=== PATIENT | male | born 1975 | race Caucasian/White ===

== ENCOUNTER → 2020-08-20 08:27 | Outpatient (CLI) | payer BC, SELFPAY ==
--- NOTE | ~2020-08-20 | XR_ITS ---
XR thoracic spine 3V DATE: 08/20/2020 09:03 INDICATION: Back pain TECHNIQUE: Standing AP, lateral and swimmer views COMPARISON: None FINDINGS: There is minimal dextroscoliosis of the thoracic spine. No fracture or dislocation or bone destruction. The thoracic pedicles are intact. No paraspinal soft tissue thickening. IMPRESSION: Minimal dextroscoliosis Reviewed, dictated and finalized at location A. ON ANALYST IMPRESSION: Minimal dextroscoliosis
--- NOTE | ~2020-08-20 | XR_ITS ---
XR lumbar spine 2-3V DATE: 08/20/2020 09:03 INDICATION: Back pain TECHNIQUE: AP, lateral, coned lateral lumbosacral views COMPARISON: None FINDINGS: The lumbar vertebrae are normally aligned. No fracture or bone destruction or spondylolisth esis. The lumbar pedicles are intact. Lumbar and lumbosacral interspaces are well preserved. The sacr oiliac joints appear normal. IMPRESSION: Negative Reviewed, dictated and finalized at location A. R PULLER IMPRESSION: Negative
== END ==
PROVIDERS: PCP Internal Medicine; Visit Provider Internal Medicine
DX: M54.5 Low back pain (principal); M54.6 Pain in thoracic spine; M41.9 Scoliosis, unspecified
CPT/HCPCS: 72072; 72100

== ENCOUNTER 2020-09-16 16:31 | Emergency (ER) | payer BC, SELFPAY ==
--- NOTE | ~2020-09-16 | CT_ITS ---
EXAMINATION: CT brain wo con EXAM DATE: 09/16/2020 17:47 INDICATION: Altered mental status. TECHNIQUE: Spiral CT of the head was performed without contrast. Axial, coronal and sagittal images were reviewed. The dose-length product (DLP) for this examination was 605.33 mGy-cm. The exposure w as tailored according to patient size, and iterative reconstruction (ASIR) was used as additional dos e reduction technique. There is no prior study for comparison. FINDINGS: There is no acute intraparenchymal hemorrhage. No evidence of intraparenchymal brain mass lesion. No evidence of acute infarction. There is no mass effect or midline shift. The ventricles are normal in size. There are no extra-axial collections. There are no acute calvarial fractures. T he orbits are unremarkable. Soft tissue is unremarkable. The visualized sinuses and mastoid air johann ls are well aerated. IMPRESSION: 1. Normal head CT examination. Reviewed, dictated and finalized at location A. RVISOR SOAKERS
[2020-09-16 16:40] VITALS: BP 124/81; PULSE 76; RESP 18; TEMP 36.7; O2SAT 97
--- NOTE | 2020-09-16 16:48 | ECG_ITS ---
Measurements Intervals [place] Rate: 76 P: 17 [place]: 149 QRS: 11 QRSD: 80 T: 19 QT: 333 QTc: 374 Interpretive Statements SINUS RHYTHM BASELINE ARTIFACT- I, II, III, AVR, AVL NORMAL ECG Electronically Signed On 09-16-2020 18:07:59 CANDY STARCH MOLD PRINTER by Ceasar Sandoval D.O.
[2020-09-16 17:00] VITALS: PULSE 76
--- NOTE | 2020-09-16 17:15 | ED.GENADULT ---
HPI - General Adult General Chief complaint: Unspecified Stated complaint: confusion Time Seen by Provider: 09/16/20 16:52 Source: patient and family Mode of arrival: ambulatory Limitations: no limitations History of Present Illness HPI narrative: A 45-year-old male presents to the emergency department with multiple complaints. First patient states that he had an episode earlier today where he got very sweaty, lightheaded, he noted blurriness to his vision. Patient also notes shakiness. Initially he thought his blood sugar may be low as he has been told he is a prediabetic in the past. He checked his blood sugar and found it to be 98. Patient drinks some orange juice and had a candy bar and started to feel somewhat better. He later went home and rested. When the patient was still continuing to feel off he decided to come in. He does have a history of Klinefelter syndrome with hypothyroidism, rheumatoid arthritis and prediabetes. Patient denies any changes in his medications in the last several months. He states the only change he can think of is he was taken off of prednisone and put on leflunomide for his RA several months ago. Patient also recently had a 40 pound weight loss. At this time the patient states he feels fatigued but otherwise nearly back to normal. Related Data Home Medications Medication Instructions Recorded Confirmed Nexium 09/16/20 celecoxib mg 09/16/20 leflunomide mg 09/16/20 levothyroxine 09/16/20 testosterone 09/16/20 Allergies Allergy/AdvReac Type Severity Reaction Status Date / Time Opioids - Morphine Analogues Allergy Severe FORMER Verified 12/05/17 20:25 ADDICT NKA Allergy Unknown Uncoded 09/16/20 17:06 Review of Systems Review of Systems: Narrative: CONSTITUTIONAL: Denies fever, chills, or sweats. Endorses fatigue EYES: Denies visual changes, redness, or discharge. ENT: Denies rhinorrhea, congestion, sore throat, or otalgia. CARDIOVASCULAR: Denies chest pain, palpitations, or edema. RESPIRATORY: Denies cough or dyspnea. GASTROINTESTINAL: Denies abdominal pain, nausea, vomiting, or diarrhea. GENITOURINARY: Denies dysuria or hematuria. SKIN: Denies rash or itching. MUSCULOSKELETAL: Denies back pain, joint pain, or myalgia. NEUROLOGIC: Denies headache, numbness, dizziness, or weakness. PSYCHIATRIC: Denies anxiety or depression. [facility] Past Medical History Medical History Hypothyroidism Klinefelters syndrome Rheumatoid arthritis Social History Social History Smoking status: Current every day smoker Alcohol intake: current Gender identity (if verbalized by the patient): Male Exam Narrative: Exam Narrative: GENERAL: Well-appearing, well-nourished, and in no acute distress. HEAD: Normocephalic, atraumatic. EYES: PERRLA and EOMI. ENT: Nares clear, no rhinorrhea or epistaxis. Mucous membranes moist. Oropharynx without tonsillar hypertrophy exudate or other lesions. Bilateral TMs pearly pro nonbulging NECK: Supple. No adenopathy or masses. No carotid bruits or JVD CHEST: Clear to auscultation. No respiratory distress. No wheezes rales or rhonchi HEART: Regular rate and rhythm. No murmur heard. Normal peripheral pulses. ABDOMEN: Soft, nontender, nondistended, normal active bowel sounds. EXTREMITIES: Normal range of motion. No edema. SKIN: Warm, dry, no rash. NEURO: No focal deficits. Alert and oriented x3. NIHSS = 0. PSYCH: Normal mood and affect. Course Reevaluation(s) Reevaluation #1: Patient reevaluated and provided care update. He is resting comfortably in his room. Updated to the current values of labs. We discussed all at this point. Informed him of his CT findings as well. Patient notes that he is starting to feel better, almost back to baseline. Date: 09/16/20 Time: 18:14 Reevaluation #2: Patient updated to final results. Recommended he cease ma
[2020-09-16] MEDS: LACTATED RINGERS 1,000 ML 999 ML IV CONT (17:42)
--- NOTE | 2020-09-16 17:43 | PC.NURSE ---
IV obtained with 2nd attempt, IVF bolus started. Pt to radiology for head CT.
[2020-09-16 17:47] LABS: Basophils Absolute Auto 0.1 K/mm3 (0.0-0.1); Basophils Percent Auto 0.9 % (0.2-1.2); Eosinophils Absolute Auto 0.5 K/mm3 (0-0.3); Eosinophils Percent Auto 5.1 % (0-4.4); Hematocrit 41.3 % (42.0-52.0); Hemoglobin 14.1 g/dL (14.0-18.0); Immature Granulocyte Absolute 0.03 K/mm3 (0.00-0.031); Immature Granulocyte Percent A 0.3 % (0-0.5); Lymphocytes Absolute Auto 2.16 K/mm3 (0.9-3.2); Lymphocytes Percent Auto 23.6 % (18.3-44.2); Mean Corpuscular HGB Conc 34.1 g/dl (32-36); Mean Corpuscular Hemoglobin 30.7 pg (26-34); Mean Corpuscular Volume 89.8 fl (80-100); Mean Platelet Volume 9.3 fl (7.4-10.4); Monocytes Absolute Auto 0.7 K/mm3 (0.1-0.6); Monocytes Percent Auto 7.5 % (2.6-8.5); Neutrophils Absolute Auto 5.7 K/mm3 (1.3-6.7); Neutrophils Percent Auto 62.6 % (45.5-73.1); Platelet Count Result 180 k/mm3 (150-375); White Blood Count 9.2 K/mm3 (4.5-10.0)
[2020-09-16 17:54] LABS: Prothrombin Time 13.6 Seconds (11.1-14.7)
[2020-09-16 17:56] LABS: Ammonia 23 umol/L (9-30)
[2020-09-16 17:56] LABS: Alanine Aminotransferase 25 U/L (4-50); Albumin Level 4.3 g/dL (3.5-5.1); Alkaline Phosphatase 85 U/L (38-126); Anion Gap 8 mmol/L (8-16); Aspartate Amino Transferase 25 U/L (17-59); Bilirubin,Total 0.5 mg/dL (0.2-1.3); Blood Urea Nitrogen 20 mg/dL (9-20); Calcium 9.6 mg/dL (8.4-10.2); Carbon Dioxide 27 mmol/L (22-30); Chloride 103 mmol/L (98-107); Creatine Kinase 97 U/L (55-170); Estimated CRCL calculation 135 ml/min; Estimated Glomerular Filt Rate > 60; Glucose 121 mg/dL (75-110); Potassium 3.8 mmol/L (3.4-5.0); Sodium 138 mmol/L (137-145)
[2020-09-16 17:57] LABS: Lactic Acid Reflex 1.1 mmol/L (0.7-2.1)
[2020-09-16 18:08] LABS: Troponin I < 0.012 ng/mL (0.000-0.034)
[2020-09-16 18:10] LABS: Glucose Point of Care 88 (65-105)
[2020-09-16 18:27] LABS: Thyroid Stimulating Hormone 0.197 uIU/mL (0.465-4.680)
[2020-09-16 18:38] LABS: Add Urine Microscopic? NO; Appearance Urine Clear (Clear); Bilirubin Urine Negative (Negative); Blood Urine Negative (Negative); Color Urine Yellow (Yellow); Glucose Urine UA Negative (Negative); Ketones Urine Negative (Negative); Leukocyte Esterase Ur Negative LEU/UL (Negative); Nitrate Urine Negative (Negative); Protein Urine Negative (Negative); Specific Grav Ur 1.017 (1.001-1.035); Urobilinogen Urine Negative mg/dL (<2.0)
[2020-09-16 18:48] LABS: Amphetamine Screen Urine Negative (Negative); Barbiturate Screen Urine Negative (Negative); Benzodiazepines Screen Urine Negative (Negative); Cannabinoid Screen Urine Positive (Negative); Cocaine Screen Urine Negative (Negative); Methadone Screen Urine Negative (Negative); Opiate Screen Urine Negative (Negative); Phencyclidine Screen Urine Negative (Negative)
[2020-09-16 19:17] VITALS: BP 122/75; PULSE 72; RESP 16; TEMP 36.7; O2SAT 98
== END 2020-09-16 19:18 | disposition home or self-care (01) ==
PROVIDERS: Emergency Provider Emergency Medicine; PCP Internal Medicine
DX: R55 Syncope and collapse (principal); R41.82 Altered mental status, unspecified; E03.9 Hypothyroidism, unspecified; M06.9 Rheumatoid arthritis, unspecified
CPT/HCPCS: 36415; 70450; 80053; 80307; 81003; 82140; 82550; 83605; 84443; 84484; 85025; 85610; 93005; 96360; 99284; J7120

== ENCOUNTER 2020-10-14 07:30 | Outpatient (CLI) | payer BC, SELFPAY ==
--- NOTE | ~2020-10-14 | MR_ITS ---
EXAMINATION: MR thoracic spine wo con EXAM DATE: 10/14/2020 08:16 INDICATION: Dorsalgia . Severe mid to low back pain. Symptoms progressing. TECHNIQUE: Multi-sequential, multiplanar MR images of the thoracic spine were obtained without contra st. Sagittal T1, T2, T2 fat saturation, axial T2 weighted images reviewed. There is no prior study for comparison. FINDINGS: There are scattered focal signal abnormalities consistent with hemangiomata, otherwise with out focal suspicious marrow signal abnormalities. Mild mid thoracic disc disease with small bulges an d protrusions, some indenting the spinal cord but only causing mild central canal stenosis. The spina l cord signal intensity and intrinsic morphology is normal. Mild diffuse thoracic facet arthropathy. Thoracic neural foramen are widely patent. The vertebral bodies are aligned in the AP dimension. Para spinal soft tissue is unremarkable. Conus medullaris and upper lumbar spine unremarkable. Small left Bochdalek fat-containing hernia. IMPRESSION: Mild thoracic spondylosis. Reviewed, dictated and finalized at location B. LE SPINDLE SHAPER OPERATOR IMPRESSION: Mild thoracic spondylosis.
--- NOTE | ~2020-10-14 | MR_ITS ---
EXAMINATION: MR lumbar spine wo con DATE: 10/14/2020 08:23 INDICATION: Mid and low back pain. TECHNIQUE: Magnetic resonance imaging (MRI) of the lumbar spine was performed without intravenous con trast. Sequences included sagittal T2-weighted FSE, sagittal T2-weighted FS FSE, sagittal T1-weighted FSE, and axial T2-weighted FSE. COMPARISON: Lumbar spine radiographs 08/20/2020 FINDINGS: Bone alignment is normal. Vertebral body heights and intervertebral disc heights are normal . The distal spinal cord signal intensity is normal. The conus medullaris is at L1. The following dis c levels are specifically discussed: L1-L2: The disc does not extend beyond the endplate margin. There is mild bilateral facet joint osteo arthritis. There is no neural foraminal stenosis. There is no central canal stenosis. L2-L3: The disc does not extend beyond the endplate margin. There is mild bilateral facet joint osteo arthritis. There is no neural foraminal stenosis. There is no central canal stenosis. L3-L4: The disc does not extend beyond the endplate margin. There is mild bilateral facet joint osteo arthritis. There is no neural foraminal stenosis. There is no central canal stenosis. L4-L5: The disc does not extend beyond the endplate margin. There is mild bilateral facet joint osteo arthritis. There is no neural foraminal stenosis. There is no central canal stenosis. L5-S1: The disc does not extend beyond the endplate margin. There is moderate bilateral facet joint o steoarthritis. There is mild bilateral neural foraminal stenosis. There is no central canal stenosis. IMPRESSION: 1. Mild lumbar spondylosis. Reviewed, dictated and finalized at location A. SAWYER IMPRESSION: 1. Mild lumbar spondylosis.
== END 2020-10-14 07:31 ==
PROVIDERS: PCP Internal Medicine; Visit Provider Internal Medicine
DX: M47.815 Spondylosis without myelopathy or radiculopathy, thoracolumbar region (principal); M47.817 Spondylosis without myelopathy or radiculopathy, lumbosacral region
CPT/HCPCS: 72146; 72148

== ENCOUNTER → 2021-01-23 08:58 | Outpatient (CLI) | payer BC, SELFPAY ==
--- NOTE | ~2021-01-23 | MR_ITS ---
EXAMINATION: MR cervical spine wo con DATE: 01/23/2021 09:36 INDICATION: Cervical radiculopathy. TECHNIQUE: Magnetic resonance imaging (MRI) of the cervical spine was performed without intravenous c ontrast. Sequences included sagittal T2-weighted FSE, sagittal STIR FSE, sagittal T1-weighted FSE, ax ial MERGE, and axial T2-weighted FSE. COMPARISON: None FINDINGS: Bone alignment is normal. Vertebral body heights and intervertebral disc heights are normal . There is a hemangioma in C4 vertebral body. The spinal cord signal intensity is normal. The followi ng disc levels are specifically discussed: C2-C3: The disc does not extend beyond the endplate margin. There is no uncovertebral joint osteoarth ritis. There is mild bilateral facet joint osteoarthritis. There is no neural foraminal stenosis. The re is no central canal stenosis. C3-C4: The disc does not extend beyond the endplate margin. There is no uncovertebral joint osteoarth ritis. There is no facet joint osteoarthritis. There is no neural foraminal stenosis. There is no olimpia tral canal stenosis. C4-C5: There is a right central protrusion. There is no uncovertebral joint osteoarthritis. There is mild left facet joint osteoarthritis. There is no neural foraminal stenosis. There is mild central ca nal stenosis. C5-C6: There is a central protrusion. There is mild bilateral uncovertebral joint osteoarthritis. The re is no facet joint osteoarthritis. There is no neural foraminal stenosis. There is mild central can al stenosis. C6-C7: The disc does not extend beyond the endplate margin. There is no uncovertebral joint osteoarth ritis. There is no facet joint osteoarthritis. There is no neural foraminal stenosis. There is no olimpia tral canal stenosis. C7-T1: The disc does not extend beyond the endplate margin. There is no uncovertebral joint osteoarth ritis. There is mild bilateral facet joint osteoarthritis. There is no neural foraminal stenosis. The re is no central canal stenosis. IMPRESSION: 1. Mild cervical spondylosis. Reviewed, dictated and finalized at location B.
== END ==
DX: M47.22 Other spondylosis with radiculopathy, cervical region (principal)
CPT/HCPCS: 72141

== ENCOUNTER 2021-09-29 09:35 | Outpatient (CLI) | payer BC, SELFPAY ==
--- NOTE | 2021-09-29 11:00 | NEURO_ITS ---
Impression: # Complains of bilateral wrist pain. # No Carpal Tunnel Syndrome or ulnar neuropathy. # Normal needle/EMG exam. # Clinical correlation recommended. Nerve Conduction Studies Anti Sensory Summary Table Stim Site NR Peak (ms) P-T Amp (?V) Site1 Site2 Delta-P (ms) Dist (cm) Neal (m/s) Left Median Anti Sensory (2-3nd Digit) Wrist 3.0 53.4 Wrist 2-3nd Digit 3.0 14.0 47 Wrist 3.0 28.9 Wrist 2-3nd Digit 3.0 14.0 47 Right Median Anti Sensory (2-3nd Digit) Wrist 2.9 34.0 Wrist 2-3nd Digit 2.9 14.0 48 Wrist 3.1 40.3 Wrist 2-3nd Digit 2.9 14.0 48 Left Radial Anti Sensory (Base 1st Digit) Wrist 2.0 40.0 Wrist Base 1st Digit 2.0 0.0 Right Radial Anti Sensory (Base 1st Digit) Wrist 2.3 9.9 Wrist Base 1st Digit 2.3 0.0 Left Ulnar Anti Sensory (5th Digit) Wrist 3.0 21.8 Wrist 5th Digit 3.0 14.0 47 Right Ulnar Anti Sensory (5th Digit) Wrist 2.6 17.1 Wrist 5th Digit 2.6 14.0 54 Motor Summary Table Stim Site NR Onset (ms) O-P Amp (mV) Site1 Site2 Delta-0 (ms) Dist (cm) Neal (m/s) Left Median Motor (Abd Poll Brev) Wrist 2.8 3.0 Elbow Wrist 5.4 32.0 59 Elbow 8.2 5.1 Right Median Motor (Abd Poll Brev) Wrist 3.1 3.7 Elbow Wrist 4.8 29.0 60 Elbow 7.9 2.6 Left Ulnar Motor (Abd Dig Minimi) Wrist 2.3 5.8 A Elbow Wrist 5.4 32.0 59 A Elbow 7.7 4.9 Right Ulnar Motor (Abd Dig Minimi) Wrist 2.9 6.3 A Elbow Wrist 5.2 31.0 60 A Elbow 8.1 5.2 F Wave Studies NR F-Lat (ms) L-R F-Lat (ms) Left Median (Mrkrs) (Abd Poll Brev) 27.81 0.49 Right Median (Mrkrs) (Abd Poll Brev) 28.30 0.49 Left Ulnar (Mrkrs) (Abd Dig Min) 27.91 0.52 Right Ulnar (Mrkrs) (Abd Dig Min) 28.44 0.52 EMG Side Muscle Nerve Root Ins Act Fibs Amp Dur Recrt Comment Right 1stDorInt Ulnar C8-T1 Nml Nml Nml Nml Nml Right Ext Indicis Radial (Post Int) C7-8 Nml Nml Nml Nml Nml Right Ext Digitorum Radial (Post Int) C7-8 Nml Nml Nml Nml Nml Right BrachioRad Radial C5-6 Nml Nml Nml Nml Nml Right PronatorTeres Median C6-7 Nml Nml Nml Nml Nml Right Abd Poll Brev Median C8-T1 Nml Nml Nml Nml Nml Left 1stDorInt Ulnar C8-T1 Nml Nml Nml Nml Nml Left Ext Indicis Radial (Post Int) C7-8 Nml Nml Nml Nml Nml Left Ext Digitorum Radial (Post Int) C7-8 Nml Nml Nml Nml Nml Left BrachioRad Radial C5-6 Nml Nml Nml Nml Nml Left PronatorTeres Median C6-7 Nml Nml Nml Nml Nml Left Abd Poll Brev Median C8-T1 Nml Nml Nml Nml Nml Right ABD Dig Min Ulnar C8-T1 Nml Nml Nml Nml Nml Left ABD Dig Min Ulnar C8-T1 Nml Nml Nml Nml Nml Right Add Pollicis Ulnar C8-T1 Nml Nml Nml Nml Nml Right Abd Poll Long Radial (Post Int) C7-8 Nml Nml Nml Nml Nml Left Add Pollicis Ulnar C8-T1 Nml Nml Nml Nml Nml Left Abd Poll Long Radial (Post Int) C7-8 Nml Nml Nml Nml Nml MTDD
== END 2021-09-29 09:36 | disposition home or self-care (01) ==
PROVIDERS: Visit Provider Nurse Practitioner Family
DX: M25.532 Pain in left wrist (principal)
CPT/HCPCS: 95886; 95911

== ENCOUNTER → 2021-10-12 09:49 | Outpatient (CLI) | payer BC, SELFPAY ==
--- NOTE | ~2021-10-12 | US_ITS ---
EXAMINATION: US right upper quadrant DATE: 10/12/2021 10:10 INDICATION: Right upper quadrant abdominal pain. TECHNIQUE: Multiple grayscale and Doppler ultrasound images of the abdomen were obtained. COMPARISON: None FINDINGS: The visualized portions of the head and body of the pancreas are normal. The liver is gavin l without focal lesion. No liver surface nodularity. There is normal flow in main portal vein. The ga llbladder is normal in size. No gallstones or gallbladder wall thickening. There was no sonographic M urphy sign. The common duct is normal and measures 3 mm. IMPRESSION: 1. Normal right upper quadrant ultrasound. Reviewed, dictated and finalized at location A. TENANCE AND OPERATIONS SUPERVISOR
== END ==
PROVIDERS: PCP Nurse Practitioner Family
DX: R10.11 Right upper quadrant pain (principal)
CPT/HCPCS: 76705

== ENCOUNTER 2021-10-19 08:02 | Outpatient (CLI) | payer BC, SELFPAY ==
--- NOTE | ~2021-10-19 | NM_ITS ---
EXAMINATION: NM hepatobiliary wo pharm DATE: 10/19/2021 11:23 INDICATION: Right upper quadrant abdominal pain COMPARISON: None. TECHNIQUE: 4.8 mCi Tc-99m mebrofenin (Choletec) was administered intravenously. Scintigraphic images of the abdomen were obtained for one hour. At the 1 hour time point, the patient drank 8 oz Ensure, and imaging was continued for 60 minutes. Gallbladder ejection fraction was calculated by the technol ogist. FINDINGS: There is normal clearance of radiotracer from the blood pool. There is homogeneous tracer u ptake by the liver. Activity progresses to the bowel and gallbladder. The gallbladder ejection fract ion (GBEF) is 90%. Note that with this technique, normal GBEF >= 33%. IMPRESSION: 1. Normal hepatobiliary scan Reviewed, dictated and finalized at location A. [employer] OPERATOR
== END 2021-10-19 08:03 | disposition home or self-care (01) ==
LOC: ANHIMG 08:04
PROVIDERS: PCP Nurse Practitioner Family
DX: R10.11 Right upper quadrant pain (principal)
CPT/HCPCS: 78226; A9537

== ENCOUNTER 2021-11-17 07:52 | Outpatient (CLI) | payer BC, SELFPAY ==
--- NOTE | ~2021-11-17 | CT_ITS ---
EXAMINATION: CTA abdomen EXAM DATE: 11/17/2021 08:19 INDICATION: Ischemic colitis. TECHNIQUE: Spiral CT of the abdomen was performed following intravenous injection of 100 mL Omnipaque 350. Axial, coronal and sagittal images of the abdomen were reviewed. Maximum intensity projection 3-D reconstructions of the arteries were created by the technologist on dedicated workstation. The dose-length product (DLP) for this examination was 448.48 mGy-cm. The exposure was tailored accordin g to patient size (auto mA exposure control), and iterative reconstruction (ASIR) was used as additio nal dose reduction technique. There is no prior study for comparison. FINDINGS: The abdominal aorta, celiac artery, superior mesenteric artery, inferior mesenteric artery, renal arteries are widely patent. Portal venous system is not yet enhanced. There is no portal venou s gas. The liver, spleen, adrenal glands and pancreas are unremarkable. Gallbladder is unremarkable. No b iliary obstruction. Portal and splenic veins are patent. Kidneys enhance symmetrically. There is n o hydronephrosis. There is no retroperitoneal lymphadenopathy. The stomach and small bowel are unremarkable. There is expected amount of colonic stool. No free i ntraperitoneal gas. The heart is normal in size. There are no pericardial or pleural effusions. T he lung bases are unremarkable. The bones are unremarkable. IMPRESSION: Unremarkable CTA abdomen examination. Reviewed, dictated and finalized at location A. AL ARTS TEACHER
== END 2021-11-17 07:53 | disposition home or self-care (01) ==
LOC: ANHIMG 07:55
PROVIDERS: PCP Nurse Practitioner Family
DX: K55.9 Vascular disorder of intestine, unspecified (principal)
CPT/HCPCS: 74175; Q9967

== ENCOUNTER 2022-09-26 18:08 | Emergency (ER) | payer BC, SELFPAY ==
--- NOTE | ~2022-09-26 | XR_ITS ---
EXAMINATION: XR hip RT 2V w AP pelvis DATE: 09/26/2022 19:45 INDICATION: Right hip and leg pain TECHNIQUE: Anteroposterior view of the pelvis and anteroposterior and frog-leg lateral views of the r ight hip were obtained. COMPARISON: None. FINDINGS: Bone alignment is normal. No fracture. There is bilateral decreased femoral head neck offset with cys tic change at the right anterosuperior femoral head neck junction which can be seen in the setting of cam-type femoral acetabular impingement. Bilateral hip joint spaces are normal. Mild bilateral sacro iliac osteoarthritis. Soft tissues are unremarkable. IMPRESSION: 1. No acute osseous abnormality. 2. Bilateral decreased femoral head neck offset with cystic change at the right anterosuperior femora l head neck junction which can be seen in the setting of cam-type femoral acetabular impingement. Reviewed, dictated and finalized at location A. ER SOLUTION MIXER IMPRESSION: 1. No acute osseous abnormality. 2. Bilateral decreased femoral head neck offset with cystic change at the right anterosuperior femoral head neck junction which can be seen in the setting of cam-type femoral acetabular impingement.
[2022-09-26 18:14] VITALS: BP 121/88; PULSE 95; RESP 14; TEMP 37.1; O2SAT 97
--- NOTE | 2022-09-26 19:30 | ED.EXTPRO ---
HPI - Extremity Problem General Chief complaint: Extremity Problem,Nontraumatic Stated complaint: leg pain Time Seen by Provider: 09/26/22 19:20 History of Present Illness HPI Narrative: 47-year-old male presented to the emergency department for complaint of multiple issues including right hip and leg pain and swollen submandibular lymph nodes. Patient states [place], had just gotten out of a jeep and was walking up his driveway when he had onset of right buttock and right thigh pain. Patient also states he is having right hip pain. Patient states the pain does radiate down to his knee. Patient does report tenderness to the right lateral thigh. Patient denies any incident of specific injury. Patient also states that tonight he began having swelling of lymph nodes. Patient denies any cough or shortness of breath. Related Data Home Medications Medication Instructions Recorded Confirmed Nexium 09/16/20 celecoxib 200 mg capsule mg 09/16/20 leflunomide 20 mg tablet mg 09/16/20 levothyroxine 50 mcg tablet 09/16/20 testosterone 20.25 mg/1.25 gram 09/16/20 (1.62 %) transdermal gel pump Allergies Allergy/AdvReac Type Severity Reaction Status Date / Time Opioids - Morphine Analogues Allergy Severe FORMER Verified 12/05/17 20:25 ADDICT NKA Allergy Unknown Uncoded 09/16/20 17:06 Review of Systems Review of Systems: CONSTITUTIONAL: Denies fever, chills, or sweats. EYES: Denies visual changes, redness, or discharge. ENT: See HPI CARDIOVASCULAR: Denies chest pain, palpitations, or edema. RESPIRATORY: Denies cough or dyspnea. GASTROINTESTINAL: Denies abdominal pain, nausea, vomiting, or diarrhea. GENITOURINARY: Denies dysuria or hematuria. SKIN: Denies rash or itching. MUSCULOSKELETAL: See HPI NEUROLOGIC: Denies headache, numbness, or weakness. [facility] Past Medical History Medical History Hypothyroidism Klinefelters syndrome Rheumatoid arthritis Social History Social History Smoking status: Current every day smoker Alcohol intake: current Gender identity (if verbalized by the patient): Male Exam Narrative: APPEARANCE: Uncomfortable due to rib pain HEAD: normocephalic, atraumatic. EYES: PERRLA/EOMI, conjunctivae clear. NOSE: Normal no drainage EARS:TMS clear with good light reflex. THROAT: Pharynx clear, no exudate. NECK: Supple. No palpated lymphadenopathy. RESPIRATORY: Airway patent, respirations nonlabored. Clear to auscultation bilaterally, no rales, rhonchi, wheezing. CARDIOVASCULAR: Regular rate and rhythm without murmurs rubs or gallops. ABDOMINAL: Soft, nontender, nondistended, normal bowel sounds MUSCULOSKELETAL: Tenderness to right buttock and right lateral thigh. No ecchymosis, no edema or swelling. NEURO: Alert. Cranial nerves II through XII intact. Grossly intact SKIN: Warm, dry. Normal Color Course Course Emergency Course: Patient is afebrile and patient was negative for COVID RSV and influenza. hip x-ray was negative for acute fracture or dislocation. Patient did feel improved with treatment. Differential diagnosis did include hip fracture, sciatica, muscle strain, leg contusion. Patient is neurologically intact and x-rays were negative. Suspect muscular strain or contusion as the underlying etiology for the patient's symptoms. Patient was provided medications for pain control and was encouraged to have close follow-up with his primary care physician. All questions and concerns were addressed. Vital Signs Vital signs: Vital Signs Temperature 98.8 F 09/26/22 18:14 Pulse Rate 95 09/26/22 18:14 Respiratory Rate 14 09/26/22 18:14 Blood Pressure 121/88 09/26/22 18:14 Pulse Oximetry 97 09/26/22 18:14 Oxygen Delivery Room Air 09/26/22 18:14 Temperature 98.8 F 09/26/22 18:14 Pulse Rate 95 09/26/22 18:14 Respirator
[2022-09-26] MEDS: KETOROLAC 30 MG/ML VIAL (*BKC) IM (19:33)
[2022-09-26] MEDS: CYCLOBENZAPRINE HCL 10 MG TABLET PO (19:33)
[2022-09-26 20:58] LABS: Strep Group A RT-PCR NOT DETECTED (Negative)
[2022-09-26 21:12] LABS: Influenza A QL RT-PCR Negative (Negative); Influenza B QL RT-PCR Negative (Negative); RSV RNA, RT-PCR Negative (Negative); SARS-CoV-2 RNA PCR Negative
== END 2022-09-26 21:55 | disposition home or self-care (01) ==
PROVIDERS: Emergency Provider Emergency Medicine; PCP Nurse Practitioner Family
DX: M25.551 Pain in right hip (principal); M79.604 Pain in right leg; Z20.822 Contact with and (suspected) exposure to COVID-19; E03.9 Hypothyroidism, unspecified; Q98.4 Klinefelter syndrome, unspecified; M06.9 Rheumatoid arthritis, unspecified; F17.200 Nicotine dependence, unspecified, uncomplicated
CPT/HCPCS: 73502; 87637; 87651; 96372; 99283; A9270; J1885

== ENCOUNTER 2023-07-22 13:42 | Emergency (ER) | payer MEDICAID, SELFPAY ==
[2023-07-22] VITALS (19 sets, daily range): BP systolic 107–160; BP diastolic 48–106; PULSE 63–95; RESP 12–24; TEMP 36.3–36.4; O2SAT 97–100
--- NOTE | ~2023-07-22 | XR_ITS ---
EXAMINATION: XR chest 2V DATE: 07/22/2023 14:52 INDICATION: Cough TECHNIQUE: Frontal and lateral views of the chest are obtained COMPARISON: 06/30/2019 FINDINGS: The lungs are free of acute opacities. No pleural effusion or pneumothorax. The cardiomedia stinal silhouette is normal. The visualized bones and soft tissues are unremarkable. IMPRESSION: 1. No acute cardiopulmonary abnormality. Reviewed, dictated and finalized at location B. PROGRAM AUDITOR
--- NOTE | ~2023-07-22 | CT_ITS ---
EXAMINATION: CT abdomen pelvis w con INDICATION: Nausea, vomiting, diarrhea TECHNIQUE: Computed tomographic images of the abdomen and pelvis were obtained after the administrati on of 100 cc of Omnipaque 350 intravenous contrast. The dose-length product (DLP) was 739.27 mGy-cm. Automated exposure control and iterative reconstruction technique were employed. COMPARISON: 11/17/2021 FINDINGS: The lung bases are clear. The heart size is normal. The liver, spleen, pancreas, gallbladde r, and adrenal glands are normal. The right kidney is unremarkable. A 5 mm lesion of the left kidney is too small to characterize but likely represents a cyst. No pathologically enlarged abdominal or pe lvic lymph nodes are identified. There is no free intraperitoneal gas. There are no dilated loops of bowel. IMPRESSION: 1. No CT correlate for the patient's symptoms. Reviewed, dictated and finalized at location B. MATIC DRILL OPERATOR
--- NOTE | 2023-07-22 13:50 | ECG_ITS ---
Measurements Intervals [place] Rate: 63 P: 30 [place]: 129 QRS: 21 QRSD: 78 T: 45 QT: 354 QTc: 365 Interpretive Statements SINUS RHYTHM BASELINE ARTIFACT- I, II, III, AVR, AVL, AVF NORMAL ECG COMPARED TO ECG 09/16/2020 16:44:21 NO SIGNIFICANT CHANGES Electronically Signed On 07-22-2023 13:59:26 PULP DRIER by Ceasar Sandoval D.O.
--- NOTE | 2023-07-22 14:02 | ED.NAVMDI ---
HPI - Nausea/Vomiting/Diarrhea General Chief complaint: Nausea/Vomiting/Diarrhea <Dana Sands PA-C - Last Filed: 07/22/23 16:40> Stated complaint: vomiting <Dana Sands PA-C - Last Filed: 07/22/23 16:40> Time Seen by Provider: 07/22/23 13:44 <Dana Sands PA-C - Last Filed: 07/22/23 16:40> History of Present Illness HPI Narrative: 48-year-old male with a history of RA, fibromyalgia and hypothyroidism reports for evaluation for multiple medical complaints. Patient states he has had nausea, vomiting and diarrhea for the past 7 days. He reports around 6 episodes of emesis and watery diarrhea daily since the onset of symptoms. He reports generalized and epigastric abdominal pain intermittently. He is also complaining of intermittent chest pain and shortness of breath, he currently does not have chest pain or shortness of breath. He denies known fever, urinary complaints, melena or hematochezia, hematemesis or coffee-ground emesis. He also states he is lightheaded which he is attributing to dehydration. He has not been able to eat or drink anything in 4 days. He reports a productive cough and congestion. Denies recent antibiotic use, camping or travel but does state he was hospitalized in March 2023 for vertigo. He had an MRI done and lab work which showed a new diagnosis of alpha gal. After he left the exam room, patient endorsed to the nurse that he would like a psychiatric evaluation as well. Patient states he has been feeling depressed for the past multiple months. States he has had some relationship issues and was recently let go from his job in March 2023 and lost his health insurance which is at increased dressers to his life. He states a few days ago, he had thoughts of suicide with a plan to overdose on heroin. He has a history of heroin abuse and went to inpatient rehab in 2012, states he has been sober since. He does report using marijuana but denies other drug or alcohol use. He denies homicidal ideation. Does state that he had a suicide attempt in rehab where he tried to hang himself. States he was medicated for depression while he was using heroin. He denies hallucinations, symptoms of oneal, access to firearms, history of inpatient psychiatric hospitalization. <Dana Sands PA-C - Last Filed: 07/22/23 16:40> Related Data Home medications: Home Medications Medication Instructions Recorded Confirmed Nexium 09/16/20 celecoxib 200 mg capsule mg 09/16/20 leflunomide 20 mg tablet mg 09/16/20 levothyroxine 50 mcg tablet 09/16/20 testosterone 09/16/20 <Dana Sands PA-C - Last Filed: 07/22/23 16:40> Allergies/Adverse reactions: Allergies Allergy/AdvReac Type Severity Reaction Status Date / Time Opioids - Morphine Analogues Allergy Severe FORMER Verified 12/05/17 20:25 ADDICT NKA Allergy Unknown Uncoded 09/16/20 17:06 <Dana Sands PA-C - Last Filed: 07/22/23 16:40> Review of Systems Review of Systems: CONSTITUTIONAL: Denies fever, chills EYES: Denies visual changes, redness, or discharge. ENT: Denies rhinorrhea, congestion, sore throat, or otalgia. CARDIOVASCULAR: See HPI RESPIRATORY: See HPI GASTROINTESTINAL: See HPI GENITOURINARY: Denies dysuria or hematuria. SKIN: Denies rash or itching. MUSCULOSKELETAL: Denies back pain, joint pain, or myalgia. NEUROLOGIC: Denies headache, numbness, dizziness, or weakness. PSYCHIATRIC: See HPI <Dana Sands PA-C - Last Filed: 07/22/23 16:40> [facility] Past Medical History Medical History: Medical History Hypothyroidism Klinefelters syndrome Rheumatoid arthritis <Dana Sands PA-C - Last Filed: 07/22/23 16:40> Social History Social History: Social History Smoking status: Current every day smoker Alcohol intake: current Substance use type: forme
--- NOTE | 2023-07-22 14:18 | PC.NURSE ---
Upon entering room patient stated his girlfriend told him to be entirely honest about his mental health. Pt then began to cry stating he is depressed lately after I lost my job and insurance and thought about killing myself last week . Pt endorses he would relapse and shoot up with heroine. He does not have access to guns, no SI/HI at time of questioning. PA notified.
[2023-07-22 14:21] LABS: Basophils Absolute Auto 0.1 K/mm3 (0.0-0.1); Basophils Percent Auto 1.1 % (0.2-1.2); Eosinophils Absolute Auto 0.6 K/mm3 (0-0.3); Eosinophils Percent Auto 7.8 % (0-4.4); Hematocrit 46.7 % (42.0-52.0); Hemoglobin 15.8 g/dL (14.0-18.0); Immature Granulocyte Absolute 0.02 K/mm3 (0.00-0.031); Immature Granulocyte Percent A 0.2 % (0-0.5); Lymphocytes Absolute Auto 2.48 K/mm3 (0.9-3.2); Lymphocytes Percent Auto 30.1 % (18.3-44.2); Mean Corpuscular HGB Conc 33.8 g/dl (32-36); Mean Corpuscular Hemoglobin 30.7 pg (26-34); Mean Corpuscular Volume 90.7 fl (80-100); Mean Platelet Volume 9.1 fl (7.4-10.4); Monocytes Absolute Auto 0.8 K/mm3 (0.1-0.6); Monocytes Percent Auto 9.2 % (2.6-8.5); Neutrophils Absolute Auto 4.3 K/mm3 (1.3-6.7); Neutrophils Percent Auto 51.6 % (45.5-73.1); Platelet Count Result 207 k/mm3 (150-375); Red Blood Count 5.15 M/mm3 (4.6-6.20); Red Cell Distribution Width 12.6 % (11.5-14.5); White Blood Count 8.2 K/mm3 (4.5-10.0)
[2023-07-22] MEDS: FAMOTIDINE 20 MG/2 ML VIAL IV PUSH (14:32)
[2023-07-22] MEDS: ONDANSETRON INJ 4 MG/2 ML VIAL IV PUSH (14:32)
[2023-07-22 14:33] LABS: Alanine Aminotransferase 47 U/L (6-50); Albumin Level 5.2 g/dL (3.5-5.1); Alkaline Phosphatase 112 U/L (38-126); Anion Gap 14 mmol/L (8-16); Aspartate Amino Transferase 36 U/L (17-59); Bilirubin,Total 1.1 mg/dL (0.2-1.3); Blood Urea Nitrogen 17 mg/dL (9-20); Calcium 10.4 mg/dL (8.4-10.2); Carbon Dioxide 22 mmol/L (22-30); Chloride 103 mmol/L (98-107); Estimated CRCL calculation 154 ml/min; Estimated Glomerular Filt Rate > 60; Glucose 114 mg/dL (65-110); Lipase 113 U/L (23-300); Potassium 3.8 mmol/L (3.4-5.0); Sodium 139 mmol/L (137-145)
[2023-07-22] MEDS: SODIUM CHLORIDE 0.9% IV 1,000 ML 999 ML IV CONT ×2 (14:33→15:27)
[2023-07-22 14:34] LABS: Acetaminophen < 10 ug/mL (10-30); Ethanol < 10 mg/dL (<10); Salicylate < 1.0 mg/dL (2-20)
[2023-07-22 14:36] LABS: Lactic Acid Reflex 1.5 mmol/L (0.7-2.0)
[2023-07-22 14:41] LABS: Appearance Urine Clear (Clear); Bacteria Urine None Seen /hpf; Bilirubin Urine Negative (Negative); Blood Urine Negative (Negative); Color Urine Dark Yellow (Yellow); Glucose Urine UA Negative (Negative); Ketones Urine 1+ mg/dL (Negative); Leukocyte Esterase Ur Negative LEU/UL (Negative); Nitrate Urine Negative (Negative); Non Pathogenic Casts 0-2; Protein Urine Trace mg/dL (Negative); RBC Urine 0-2 /hpf (0-2); Specific Grav Ur 1.024 (1.001-1.035); Squamous Epithelial Cell Urine None seen /hpf (Few); WBC Urine 0-5 /hpf
[2023-07-22 14:43] LABS: Add Urine Microscopic? YES
[2023-07-22 14:47] LABS: Troponin I < 0.012 ng/mL (0.000-0.034)
[2023-07-22 14:55] LABS: Amphetamine Screen Urine Negative (Negative); Barbiturate Screen Urine Negative (Negative); Benzodiazepines Screen Urine Negative (Negative); Cannabinoid Screen Urine Positive (Negative); Cocaine Screen Urine Negative (Negative); Methadone Screen Urine Negative (Negative); Opiate Screen Urine Negative (Negative); Phencyclidine Screen Urine Negative (Negative)
[2023-07-22 14:56] LABS: Influenza A QL RT-PCR Negative (Negative); Influenza B QL RT-PCR Negative (Negative); SARS-CoV-2 RNA PCR Negative (Negative)
--- NOTE | 2023-07-22 16:22 | PC.NURSE ---
[place] here to speak with patient.
== END 2023-07-22 17:00 | disposition home or self-care (01) ==
PROVIDERS: Emergency Provider Physician Assistant; PCP Nurse Practitioner Family
DX: R11.2 Nausea with vomiting, unspecified (principal); R19.7 Diarrhea, unspecified; R07.89 Other chest pain; F32.A Depression, unspecified; M06.9 Rheumatoid arthritis, unspecified; E03.9 Hypothyroidism, unspecified; F17.200 Nicotine dependence, unspecified, uncomplicated; Z20.822 Contact with and (suspected) exposure to COVID-19
CPT/HCPCS: 36415; 71046; 74177; 80053; 80307; 81001; 83605; 83690; 83735; 84443; 84484; 85025; 87636; 93005; 96361; 96374; 96375; 99284; J2405; J7030; Q9967

== ENCOUNTER 2024-01-04 12:12 | Emergency (ER) | payer OTHER, SELFPAY ==
[2024-01-04] VITALS (36 sets, daily range): BP systolic 98–138; BP diastolic 54–90; PULSE 90–150; RESP 8–31; TEMP 37–39.1; O2SAT 94–100
--- NOTE | ~2024-01-04 | XR_ITS ---
EXAMINATION: XR chest 2V 01/04/2024 12:36 INDICATION: Sepsis. Recent flu. Leg pain. PROCEDURE: 2 view chest COMPARISON: No prior studies for comparison. FINDINGS: The lungs are clear. The cardiomediastinal silhouette is within normal limits. There are no pleural effusions. There is no pneumothorax suspected. IMPRESSION: 1: NO ACUTE CARDIOPULMONARY DISEASE. Reviewed, dictated and finalized at location B.
--- NOTE | ~2024-01-04 | US_ITS ---
EXAMINATION:US venous doppler LE LT INDICATION:Left leg pain and swelling TECHNIQUE: Multiple grayscale, color flow and Doppler images of the left lower extremity deep venous systems were obtained and reviewed. COMPARISON:No prior studies for comparison. FINDINGS: There is deep venous thrombosis of the left femoral vein. The common femoral, superficial f emoral and popliteal veins demonstrate normal respiratory variation, augmentation and compressibility . Color flow is also seen within the posterior tibial, peroneal, greater saphenous and profunda vein s. IMPRESSION: 1: Deep venous thrombosis of the left femoral vein. Reviewed, dictated and finalized at location B.
--- NOTE | ~2024-01-04 | CT_ITS ---
EXAMINATION: CTA [facility] DATE: 01/04/2024 15:46 INDICATION: Fever. Left foot injury. TECHNIQUE: Computed tomographic angiography (CTA) of the left lower limb was performed with 150 mL Om nipaque-350 intravenous contrast. Automated exposure control and iterative reconstruction technique w ere employed. The dose-length product was 899.01 mGy-cm. Maximum intensity projection 3D-reconstructi ons of the arteries were created by the technologist on a separate workstation. COMPARISON: None. FINDINGS: LEFT LOWER EXTREMITY VASCULATURE: There is no significant stenosis of left common femoral artery, profunda femoral artery, superficial femoral artery, popliteal artery, tibioperoneal trunk, anterior tibial artery, posterior tibial arter y, or peroneal artery. ADDITIONAL FINDINGS: There is a 15 x 33 mm left inguinal lymph node, likely reactive. IMPRESSION: 1. No significant arterial occlusive disease. 2. Mild left inguinal lymphadenopathy, likely reactive. Reviewed, dictated and finalized at location E.
--- NOTE | 2024-01-04 12:19 | ECG_ITS ---
SEE SCANNED COPY FOR CONFIRMED REPORT MTDD
[2024-01-04] MEDS: ACETAMINOPHEN 500 MG TABLET 1000 MG PO (12:23)
[2024-01-04 12:59] LABS: Basophils Percent Auto 0.5 % (0.2-1.2); Eosinophils Absolute Auto 0.1 K/mm3 (0-0.3); Eosinophils Percent Auto 0.7 % (0-4.4); Hematocrit 41.9 % (42.0-52.0); Hemoglobin 14.1 g/dL (14.0-18.0); Immature Granulocyte Absolute 0.04 K/mm3 (0.00-0.031); Immature Granulocyte Percent A 0.5 % (0-0.5); Lymphocytes Absolute Auto 0.94 K/mm3 (0.9-3.2); Lymphocytes Percent Auto 11.2 % (18.3-44.2); Mean Corpuscular HGB Conc 33.7 g/dl (32-36); Mean Corpuscular Hemoglobin 30.2 pg (26-34); Mean Corpuscular Volume 89.7 fl (80-100); Mean Platelet Volume 8.9 fl (7.4-10.4); Monocytes Absolute Auto 0.7 K/mm3 (0.1-0.6); Monocytes Percent Auto 8.5 % (2.6-8.5); Neutrophils Absolute Auto 6.6 K/mm3 (1.3-6.7); Neutrophils Percent Auto 78.6 % (45.5-73.1); Platelet Count Result 167 k/mm3 (150-375); Red Blood Count 4.67 M/mm3 (4.6-6.20); Red Cell Distribution Width 13.2 % (11.5-14.5); White Blood Count 8.4 K/mm3 (4.5-10.0)
[2024-01-04 13:13] LABS: Lactic Acid Reflex 2.2 mmol/L (0.7-2.0)
[2024-01-04 13:16] LABS: Alanine Aminotransferase 76 U/L (6-50); Alkaline Phosphatase 118 U/L (38-126); Anion Gap 10 mmol/L (4-12); Aspartate Amino Transferase 69 U/L (17-59); Bilirubin,Total 1.4 mg/dL (0.2-1.3); Blood Urea Nitrogen 18 mg/dL (9-20); CRP 6.8 mg/dL (<1.0); Calcium 9.8 mg/dL (8.4-10.2); Carbon Dioxide 23 mmol/L (22-30); Chloride 103 mmol/L (98-107); Estimated CRCL calculation 147 ml/min; Estimated Glomerular Filt Rate > 60; Glucose 180 mg/dL (65-110); Potassium 3.8 mmol/L (3.4-5.0); Sodium 136 mmol/L (137-145)
[2024-01-04 13:21] LABS: Prothrombin Time 13.7 Seconds (11.1-14.7)
[2024-01-04 13:22] LABS: Partial Thromboplastin Time 28.8 Seconds (22.3-36.8)
[2024-01-04 13:36] LABS: Influenza A QL RT-PCR Negative (Negative); Influenza B QL RT-PCR Negative (Negative); RSV RNA, RT-PCR Negative (Negative); SARS-CoV-2 RNA PCR Negative (Negative)
[2024-01-04 13:47] LABS: Appearance Urine Clear (Clear); Bacteria Urine None Seen /hpf; Bilirubin Urine 1+ (Negative); Blood Urine Negative (Negative); Color Urine Dark Yellow (Yellow); Glucose Urine UA 2+ mg/dL (Negative); Ketones Urine 1+ mg/dL (Negative); Leukocyte Esterase Ur Negative LEU/UL (Negative); Mucus Urine Present /lpf; Nitrate Urine Negative (Negative); Protein Urine 1+ mg/dL (Negative); RBC Urine 0-2 /hpf (0-2); Squamous Epithelial Cell Urine Occasional /hpf (Few); WBC Urine 0-5 /hpf (0-3); pH Urine 5.5 (5.0-9.0)
[2024-01-04 13:48] LABS: Specific Grav Ur 1.038 (1.001-1.035)
[2024-01-04 13:49] LABS: Add Urine Microscopic? YES
[2024-01-04 14:02] LABS: Monoscreen Negative (Negative); Negative Monotest Control Negative (Negative); Positive Monotest Control Positive (Positive)
[2024-01-04] MEDS: SODIUM CHLORIDE 0.9% IV 1,000 ML 999 ML IV CONT ×2 (14:10→15:57)
--- NOTE | 2024-01-04 14:45 | ED.FEVER ---
HPI - Fever General Chief Complaint: Fever Stated Complaint: LLE pain, blister on L foot Time Seen by Provider: 01/04/24 14:42 Source: patient Mode of arrival: ambulatory Limitations: no limitations History of Present Illness HPI Narrative: patient presents with a fever since the evening. Took 10 ibuprofen day yesterday primarily just rested. Maximum obtained was 1 2? F the lowest get his temperature to was 100? F. he also began having left lower extremity pain a throughout the entire leg but primarily noted proximally. Patient does note that he has a low tolerance pain in the setting diagnosis. He has a small wound at the bottom of his left foot which he believes may be a puncture wound can not exact incident, thinks it may have happened 2 weeks ago. Patient is on medications for rheumatoid arthritis as well as being on testosterone for Klinefelter syndrome. Related Data Home Medications Medication Instructions Recorded Confirmed Nexium 09/16/20 celecoxib 200 mg capsule mg 09/16/20 leflunomide 20 mg tablet mg 09/16/20 levothyroxine 50 mcg tablet 09/16/20 testosterone 09/16/20 Allergies Allergy/AdvReac Type Severity Reaction Status Date / Time Opioids - Morphine Analogues Allergy Severe FORMER Verified 01/04/24 13:08 ADDICT [facility] Past Medical History Medical History (Updated 01/05/24 @ 06:33 by Daniela Prieto MD) History of heroin abuse sober since 2012 Hypothyroidism Klinefelters syndrome Rheumatoid arthritis Family History Family History Father Alzheimer disease Social History Social History Smoking status: Current every day smoker Alcohol intake: current Substance use type: former substance user and marijuana Last use: Previous heroin use (sober since 2012) Additional living arrangements comments: Has a child and a girlfriend. Gender identity (if verbalized by the patient): Male Exam Narrative: GENERAL: well-nourished, Appears younger than stated age HEAD: Normocephalic, atraumatic. EYES: Non injected, non icteric ENT: Nares clear, no rhinorrhea or epistaxis. NECK: Supple. CHEST: Speaking in full sentences. No respiratory distress. HEART: Tachycardic rate and rhythm. . ABDOMEN: Soft, nondistended. EXTREMITIES: Normal range of motion. Mild edema Of left lower extremity. pain out of proportion to physical exam with mild touch throughout left lower extremity, particularly at proximal medial/anterior thigh. SKIN: Warm, dry. Puncture wound versus ulceration left plantar aspect foot, no surrounding induration/erythema. Erythematous rash at proximal left thigh inferior to inguinal grease, not particularly warm to touch and without vesicles/bullae. NEURO: No focal deficits. Alert and oriented x3. Course Vital Signs Vital signs: Vital Signs Temperature 102.4 F H 01/04/24 12:15 Pulse Rate 150 H 01/04/24 12:15 Respiratory Rate 20 01/04/24 12:15 Blood Pressure 138/84 01/04/24 12:15 Pulse Oximetry 100 01/04/24 12:15 Temperature 98.6 F 01/04/24 17:15 Pulse Rate 128 H 01/04/24 19:46 Respiratory Rate 18 01/04/24 19:46 Blood Pressure 121/75 01/04/24 19:45 Pulse Oximetry 97 01/04/24 19:46 MDM - Fever MDM Narrative Medical decision making narrative: patient presents with left lower extremity pain as well as fever. in the emergency department he is febrile with vital signs notable for tachycardia at 150 beats per minute. patient does have a slight erythematous rash at the proximal left side that is slightly erythematous. It does not have the appearance of cellulitis or zoster and I believe may just be due to patient rubbing this area. patient is experiencing significant pain he seems to have pain proportion physical exam findings. patient initially given acetaminophen and NSAID. Patient continues to ex
[2024-01-04] MEDS: KETOROLAC 15 MG/ML VIAL (*BKC) IV PUSH (15:14)
[2024-01-04 15:32] LABS: Creatine Kinase 119 U/L (55-170); Magnesium 2.3 mg/dL (1.6-2.3)
[2024-01-04 15:56] LABS: Reflex Lactic Acid Yes or No Add Lactic
--- NOTE | 2024-01-04 15:59 | PC.NURSE ---
patient reports severe pain after having the US done. requesting opiate for pain control. hx of IV heroin use in past, no true allergy noted. provider aware
[2024-01-04] MEDS: MORPHINE SULFATE (*CRX) 4 MG/ML INJ IV PUSH (16:04)
[2024-01-04] MEDS: APIXABAN 5 MG TABLET 10 MG PO (16:23)
[2024-01-04 16:56] LABS: Lactic Acid 1.2 mmol/L (0.7-2.0)
[2024-01-04] MEDS: HYDROcodone/acetaminophen (*CRX) 5-325 MG TABLET 1 TAB PO (17:02)
[2024-01-04] MEDS: HYDROmorphone HCL INJ (*CRX) 1 MG/ML SYR 0.5 MG IV PUSH (19:03)
== END 2024-01-04 20:07 | disposition home or self-care (01) ==
PROVIDERS: Emergency Provider Student in an Organized Health Care Education/Training Program; PCP Nurse Practitioner Family
DX: I82.412 Acute embolism and thrombosis of left femoral vein (principal); R73.9 Hyperglycemia, unspecified; R59.1 Generalized enlarged lymph nodes; R79.89 Other specified abnormal findings of blood chemistry; E03.9 Hypothyroidism, unspecified; M06.9 Rheumatoid arthritis, unspecified; Q98.4 Klinefelter syndrome, unspecified; R00.0 Tachycardia, unspecified
CPT/HCPCS: 36415; 71046; 73706; 80053; 81001; 82550; 83605; 83735; 85025; 85610; 85730; 86140; 86308; 87040; 87077; 87181; 87637; 93005; 93971; 96361; 96374; 96375; 99284; A9270; J1170; J1885; J2270; J7030; Q9967

== ENCOUNTER 2024-01-05 21:15 | Emergency (ER) | payer OTHER, SELFPAY ==
--- NOTE | ~2024-01-05 | CT_ITS ---
Clinical Indication: Tachycardia, sepsis CT Scan of the Chest, Abdomen, and Pelvis with Contrast: Technique: Contiguous sections were acquired throughout the chest, abdomen, and pelvis after intraven ous administration of 100 cc of Omnipaque 350. Dose reduction technique was used on this scan by danuta [place] automated exposure control and iterative reconstruction technique. The dose-length product (DL P) was 1902.09 mGy-cm. COMPARISON: 07/22/2023 Findings: There is no evidence of any significant mediastinal, hilar or axillary lymphadenopathy. The mediastin al soft tissues and vascular structures appear normal. No large central pulmonary embolus. Limited ev aluation of distal pulmonary arteries. No aortic aneurysm or dissection seen. There is no evidence of pleural or pericardial effusion. The lungs are clear. No pulmonary nodules or infiltrates are noted. The liver, spleen, pancreas, gallbladder, adrenals and kidneys are within normal limits. No evidence of aortic aneurysm. No lymphadenopathy. No bowel obstruction or bowel wall thickening. There is no evidence to suggest acute appendicitis. Urinary bladder is unremarkable. No pelvic mass seen. No ascites. Impression: No significant abnormalities seen. Reviewed, dictated and finalized at [facility]. Impression: No significant abnormalities seen.
--- NOTE | ~2024-01-05 | XR_ITS ---
EXAMINATION: XR chest 1V portable DATE: 01/05/2024 21:43 INDICATION: Shortness of breath and fever. TECHNIQUE: A single frontal view of the chest was obtained. COMPARISON: Chest 2 views 01/04/2024, CT abdomen and pelvis 07/22/2023 FINDINGS: There is no pneumonia, pleural effusion, or pneumothorax. The heart size is normal. IMPRESSION: 1. No acute cardiopulmonary disease. Reviewed, dictated and finalized at location E.
[2024-01-05 21:40] VITALS: BP 120/71; PULSE 129; RESP 19; O2SAT 99
[2024-01-05 22:20] LABS: Influenza A QL RT-PCR Negative (Negative); Influenza B QL RT-PCR Negative (Negative); RSV RNA, RT-PCR Negative (Negative); SARS-CoV-2 RNA PCR Negative (Negative)
[2024-01-05 22:43] VITALS: TEMP 39.9
[2024-01-05] MEDS: ACETAMINOPHEN 500 MG TABLET 1000 MG PO (22:49)
[2024-01-05 23:00] LABS: Basophils Percent Auto 0.4 % (0.2-1.2); Hematocrit 34.7 % (42.0-52.0); Hemoglobin 11.6 g/dL (14.0-18.0); Immature Granulocyte Absolute 0.03 K/mm3 (0.00-0.031); Immature Granulocyte Percent A 0.3 % (0-0.5); Lymphocytes Absolute Auto 0.74 K/mm3 (0.9-3.2); Lymphocytes Percent Auto 8.2 % (18.3-44.2); Mean Corpuscular HGB Conc 33.4 g/dl (32-36); Mean Corpuscular Hemoglobin 29.5 pg (26-34); Mean Corpuscular Volume 88.3 fl (80-100); Mean Platelet Volume 8.8 fl (7.4-10.4); Monocytes Absolute Auto 0.7 K/mm3 (0.1-0.6); Monocytes Percent Auto 7.2 % (2.6-8.5); Neutrophils Absolute Auto 7.6 K/mm3 (1.3-6.7); Neutrophils Percent Auto 83.9 % (45.5-73.1); Platelet Count Result 116 k/mm3 (150-375); Red Blood Count 3.93 M/mm3 (4.6-6.20); Red Cell Distribution Width 13.1 % (11.5-14.5); White Blood Count 9.1 K/mm3 (4.5-10.0)
[2024-01-05 23:11] LABS: Alanine Aminotransferase 50 U/L (6-50); Albumin Level 4.1 g/dL (3.5-5.1); Alkaline Phosphatase 103 U/L (38-126); Anion Gap 5 mmol/L (4-12); Aspartate Amino Transferase 45 U/L (17-59); Bilirubin,Total 1.7 mg/dL (0.2-1.3); Blood Urea Nitrogen 12 mg/dL (9-20); Calcium 8.8 mg/dL (8.4-10.2); Carbon Dioxide 26 mmol/L (22-30); Chloride 102 mmol/L (98-107); Estimated CRCL calculation 149 ml/min; Estimated Glomerular Filt Rate > 60; Glucose 157 mg/dL (65-110); Potassium 3.6 mmol/L (3.4-5.0); Sodium 133 mmol/L (137-145)
[2024-01-05 23:19] VITALS: TEMP 37.7
[2024-01-05 23:23] VITALS: BP 110/71; PULSE 124; PULSE 126; RESP 16; TEMP 37.7; O2SAT 97
[2024-01-05] MEDS: SODIUM CHLORIDE 0.9% IV 1,000 ML 999 ML IV CONT (23:39)
[2024-01-05 23:43] LABS: Creatine Kinase 271 U/L (55-170)
[2024-01-05] MEDS: ONDANSETRON INJ 4 MG/2 ML VIAL IV PUSH (23:47)
[2024-01-05] MEDS: MORPHINE SULFATE (*CRX) 4 MG/ML INJ IV PUSH (23:47)
[2024-01-06] LABS: Add Urine Microscopic? YES; Appearance Urine Clear (Clear); Bacteria Urine None Seen /hpf; Bilirubin Urine Negative (Negative); Blood Urine Trace (Negative); Color Urine Dark Yellow (Yellow); Glucose Urine UA Trace mg/dL (Negative); Ketones Urine 1+ mg/dL (Negative); Leukocyte Esterase Ur Negative LEU/UL (Negative); Need Manual Microscopic Reviewed; Nitrate Urine Negative (Negative); Non Pathogenic Casts 0-2; Protein Urine 2+ mg/dL (Negative); Specific Grav Ur 1.025 (1.001-1.035); Squamous Epithelial Cell Urine Few /hpf (Few); WBC Urine 0-5 /hpf (0-3); pH Urine 6.5 (5.0-9.0)
[2024-01-06 00:06] LABS: Lactic Acid Reflex 0.8 mmol/L (0.7-2.0)
--- NOTE | 2024-01-06 00:25 | ED.GENADULT ---
HPI - General Adult General Chief complaint: Shortness of Breath/Dyspnea Stated complaint: sob Time Seen by Provider: 01/05/24 21:22 History of Present Illness HPI narrative: Patient is a 48-year-old male who presents to the emergency department this evening complaining of bilateral lower extremity pain. Patient states that yesterday he was diagnosed with a left leg DVT and now he is presenting to the emergency department complaining of right leg pain. Patient was noted to be febrile and tachycardic yesterday with a heart rate of 150. He was administered 2 L IV fluid bolus with normal saline with improvement of his heart rate and administered multiple doses of pain medications including narcotics. Patient does have a history of heroin abuse, however, due to continued pain not responding to Tylenol and ibuprofen, he was administered morphine and Dilaudid. Patient is not requesting additional pain medications as he now has pain in his right leg. Patient states that he received a dose of his Eliquis in the ER but he has not filled his script and has not started taking his medication. He is currently denying any chest pain, admits to shortness of breath which he states started today, denies any abdominal pain, any nausea or vomiting and denies any urinary symptoms. No additional symptoms or concern at this time. Related Data Home Medications Medication Instructions Recorded Confirmed Nexium 09/16/20 celecoxib 200 mg capsule mg 09/16/20 leflunomide 20 mg tablet mg 09/16/20 levothyroxine 50 mcg tablet 09/16/20 testosterone 09/16/20 Allergies Allergy/AdvReac Type Severity Reaction Status Date / Time Opioids - Morphine Analogues Allergy Severe FORMER Verified 01/05/24 21:18 ADDICT Review of Systems Review of Systems: All systems are reviewed and are negative unless stated otherwise in the HPI. [facility] Past Medical History Medical History History of heroin abuse sober since 2012 Hypothyroidism Klinefelters syndrome Rheumatoid arthritis Family History Family History Father Alzheimer disease Social History Social History Smoking status: Current every day smoker Alcohol intake: current Substance use type: former substance user and marijuana Last use: Previous heroin use (sober since 2013) Additional living arrangements comments: Has a child and a girlfriend. Gender identity (if verbalized by the patient): Male Exam Narrative: General: Alert, awake, afebrile, in no acute distress. HEENT: PERRL, no rhinorrhea, no post nasal drip, oropharynx clear. Neck: Trachea midline, no JVD, no lymphadenopathy. Cardiovascular: Tachycardic with regular rhythm, no murmurs, rubs or gallops, no peripheral edema. Respiratory: Clear to auscultation bilaterally, no tachypnea, no wheezing, no rhonchi, no rubs, no respiratory distress. Abdomen: Soft, nontender, nondistended, no rebound, no guarding, no peritoneal signs. Musculoskeletal: Tenderness to palpation along bilateral lower extremity, patient will jump out of bed when I barely touch his lower extremity, no obvious swelling noted, patient does have a small puncture wound to the bottom of his left foot, no active bleeding, no evidence of infection or cellulitis. Skin: No rashes or petechia, no signs of infection. Psychiatric: Alert and oriented, normal behavior and judgment for situation. Neurological: Alert and oriented to person, place, and time. Follows all commands. No focal deficits, speech is clear and fluent. Course Vital Signs Vital signs: Vital Signs Pulse Rate 129 H 01/05/24 21:40 Respiratory Rate 19 01/05/24 21:40 Blood Pressure 120/71 01/05/24 21:40 Pulse Oximetry 99 01/05/24 21:40 Oxygen Delivery Room Air 01/05/24 21:40 Temperature 100.7 F H 01/06/24
[2024-01-06] MEDS: SODIUM CHLORIDE 0.9% IV 1,000 ML 999 ML IV CONT (00:29)
[2024-01-06 01:23] VITALS: BP 111/67; PULSE 104; RESP 20; O2SAT 95
[2024-01-06] MEDS: SODIUM CHLORIDE 0.9% IV 1,000 ML 150 ML IV CONT (01:49)
[2024-01-06 02:26] VITALS: BP 131/72; PULSE 132; RESP 15; TEMP 39.5; O2SAT 95
[2024-01-06] MEDS: IBUPROFEN 600 MG TABLET PO (02:32)
[2024-01-06 03:02] VITALS: TEMP 39.4
[2024-01-06 03:04] VITALS: BP 107/55; PULSE 122; RESP 14; TEMP 39.4; O2SAT 97
[2024-01-06] MEDS: ACETAMINOPHEN 500 MG TABLET 1000 MG PO (03:09)
--- NOTE | 2024-01-06 03:29 | PC.NURSE ---
Patient states that his pain in his legs is unbearable. Notified EDP Dr. Florez.
[2024-01-06 03:39] VITALS: TEMP 38.2
[2024-01-06] MEDS: ONDANSETRON INJ 4 MG/2 ML VIAL IV PUSH (03:46)
[2024-01-06] MEDS: MORPHINE SULFATE (*CRX) 4 MG/ML INJ IV PUSH (03:47)
[2024-01-06] MEDS: ENOXAPARIN 100 MG/ML SYRINGE 95 MG SUB-Q (03:49)
[2024-01-06 03:57] VITALS: PULSE 109; RESP 20; O2SAT 99
--- NOTE | 2024-01-06 22:26 | PC.NURSE ---
22:20 Left message for patient to call. Patient has positive blood culture results and primary care provider no longer with group per PIYUSH Villagomez.
== END 2024-01-06 03:57 | disposition home or self-care (01) ==
PROVIDERS: Emergency Provider Emergency Medicine; PCP Nurse Practitioner Family
DX: I82.402 Acute embolism and thrombosis of unspecified deep veins of left lower extremity (principal); Z20.822 Contact with and (suspected) exposure to COVID-19; E03.9 Hypothyroidism, unspecified; M06.9 Rheumatoid arthritis, unspecified; Q98.4 Klinefelter syndrome, unspecified; F17.210 Nicotine dependence, cigarettes, uncomplicated
CPT/HCPCS: 36415; 71045; 71275; 74177; 80053; 81001; 82550; 83605; 85025; 87040; 87077; 87637; 96361; 96372; 96374; 96375; 99284; A9270; J1650; J2270; J2405; J7030; Q9967

== ENCOUNTER 2025-06-24 08:00 | Outpatient (RCR) | payer BC, SELFPAY ==
--- NOTE | 2025-06-03 09:07 | OPREHPOC ---
Outpatient Therapy Plan of Care This is a Multidisciplinary Plan of Care that may contain components documented by all disciplines (PT, OT, and ST.) PT Problem 1 PT Problem #1 Knowledge Deficit PT Goal 1 Goal / Goal Update *pt independent with compression garment and lymphedema management Target Visit 10 PT Problem 2 PT Problem #2 Pain PT Goal 1 Goal / Goal Update * pain reported in L ankle 09/21 at worst Target Visit 10 PT Problem 3 PT Problem #3 Impaired Range of Motion PT Goal 1 Goal / Goal Update increase L ankle ROM, due to decreased lymphedema over ankle and foot: 1* DF 5 2* inversion 35' Target Visit 10 PT Problem 4 PT Problem #4 Impaired Strength PT Goal 1 Goal / Goal Update 1*increase strength of L ankle to improve mobility : gross strength of 4+/5 2* single leg standing x 30 second with good stability 3* standing bilateral PF x 10 reps with good stability Target Visit 10 PT Problem 5 PT Problem #5 Impaired Lymphatic System PT Goal 1 Goal / Goal Update improve lymphatic flow and tissue healing L lower le* circumferential measurement to 72 cm: 635 cm 2* no firmness of tissue over lower leg 3* slight redness of tissue Target Visit 10
--- NOTE | 2025-06-03 09:07 | PTOPEVAL1 ---
Assessment and note entered by Yuni Stone, PT Evaluation Information Assessment Status Evaluation ICD-10 Condition Codes (PT) Lymphedema I89.0 Onset January 2025 Subjective Information onset of swelling of leg after cat bite in January, hospitalized; leg is better and smaller, but swells at the end of the day; have bought some compression socks on line and they do not help, kind of hurt my leg history of another infection about 1 & 1/2 years ago; have had some redness of skin since then; had foot drop and problems walking after severe cellulitis. 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 He has history of another bout of cellulitis in same leg, with redness of lower leg tissue since. He is active and works from home most of the time, does do some traveling. Medical history includes: Klinefeters syndrome- chromosomal abnormality; RA, hypothyroid, fibromyalgia and diabetes. With the evaluation: L lower leg: tissue and skin changes over lower leg-- fibrotic tissue and redness, firmness and some brown discoloration, malleoli are not visible; decreased L ankle ROM and strength. With circumferential measurement, L LE is 23.6 cm larger than R. Skilled PT services of lymphedema treatment are indicated for compression wraps, LE exercises, compression garment and education to manage his chronic condition. Plan of Care Interventions Intermittent Compression Pump,Lymphedema Compression Wraps,Manual Lymph Drainage,Neuro Re- education,Patient/Caregiver Education,Therapeutic Exercise PT Services Indicated Yes Treatment Frequency and 3x/wk for 10 visits Duration These treatments will address the objective and functional deficits as defined above. The patient will be advanced safely and appropriately in order for the patient to progress towards his/her prior level of function. Additional exercises will be introduced and as well as a comprehensive home exercise program upon discharge, if needed, ?to ensure carryover of functional gains achieved in the clinic. This treatment plan has been reviewed and agreement upon by the patient.
--- NOTE | 2025-06-24 08:45 | OPREHPOC ---
Outpatient Therapy Plan of Care This is a Multidisciplinary Plan of Care that may contain components documented by all disciplines (PT, OT, and ST.) PT Problem 1 PT Problem #1 Knowledge Deficit PT Goal 1 Goal / Goal Update *pt independent with compression garment and lymphedema management 06-24-25 d/c goal met Target Visit 10 Progress Met PT Problem 2 PT Problem #2 Pain PT Goal 1 Goal / Goal Update * pain reported in L ankle 09/21 at worst 06-24-25 d/c goal met Target Visit 10 Progress Met PT Problem 3 PT Problem #3 Impaired Range of Motion PT Goal 1 Goal / Goal Update increase L ankle ROM, due to decreased lymphedema over ankle and foot: 1* DF 5 2* inversion 35' 06-24-25 d/c goals met Target Visit 10 Progress Met PT Problem 4 PT Problem #4 Impaired Strength PT Goal 1 Goal / Goal Update 1*increase strength of L ankle to improve mobility : gross strength of 4+/5 2* single leg standing x 30 second with good stability 3* standing bilateral PF x 10 reps with good stability 06-24-25 d/c goals met Target Visit 10 Progress Met PT Problem 5 PT Problem #5 Impaired Lymphatic System PT Goal 1 Goal / Goal Update improve lymphatic flow and tissue healing L lower le* circumferential measurement to 72 cm: 635 cm 2* no firmness of tissue over lower leg 3* slight redness of tissue 06-24-25 d/c goal 3 met improved with #1 to 639 cm, #2 slight firmness over lateral calf Target Visit 10 Progress Partially Met
--- NOTE | 2025-06-24 08:45 | PTOPDC ---
Assessment and note entered by Yuni Stone, PT, CLT Assessment Status Discharge ICD-10 Condition Codes (PT) Lymphedema I89.0 Onset January 2025 Subjective Information doing well, garment is comfortable and no problems with it; have the foot piece a few times with sleeping and it pushes the fluid into my thigh and there is a ridge around the top of it, so have not been using it; usually after sleeping all night and elevation of leg, the size is about the same as his other leg, but have the firm skin over the calf area; have been doing the self massage and leg exercises; Reported Pain Level Pain Score 0: Self Report Additional Pain Score Comments pain range in the past week of L leg 0-1/10, some RA pain Assessment PT Clinical Summary Dakota has received a total of 6 PT sessions. He reports using compression garments at home in March --ones he purchased on line and tried to use, without success. They hurt his leg and increased his swelling. His dr then referred him for skilled lymphedema treatments. He responded well and quickly with treatment and multi layer compression wraps. He is very motivated and followed all of the PT instructions and education. He has made excellent progress, with good reduction of L LE and improved skin integrity. With today's assessment: circumferential measurement of L LE, to 72 cm: 639.6 cm, decreased by 16.3 cm, compared to the initial evaluation, and is 7.3 cm compared to his R leg; today his leg is slightly larger, due to just getting off work and has been up and moving; skin over lower leg with slight fibrotic tissue over lateral calf and slight to minimal redness-brownish discoloration of skin. Increased strength and ROM of L ankle, with decreased pain. The compression garment he is using is a 20-30 mmHg Mediven Plus, calf high with silicone top band, size III, standard length, closed toe garment. Education completed for self management of lymphedema: self lymph massage, leg exercises, elevation of LE, monitor skin, use of compression garment, skin care. Dakota would benefit from a home intermittent compression pump, to assist him with managing his chronic lymphedema and decrease his risk for additional cellulitis and infections. He has multiple risk factors for lymphedema and cellulitis: history of 2 cellulitis incidents in L leg, Klinefeters syndrome, RA, hypothyroidism, diabetes. The PT goals were achieved. Discharge PT services. Plan of Care PT Services Indicated No
== END 2025-06-24 10:45 | disposition home or self-care (01) ==
LOC: ANHPT 08:00
PROVIDERS: PCP Nurse Practitioner Family; Visit Provider Nurse Practitioner Family
DX: I89.0 Lymphedema, not elsewhere classified (principal)
CPT/HCPCS: 29581; 97016; 97140; 97161; 97530